=== PATIENT | female | born 1935 | race Caucasian/White ===

== ENCOUNTER 2020-09-17 07:00 | Outpatient (CLI) | payer MEDICARE, OTHER | END 2020-09-17 23:59 | disposition home or self-care (01) | LOC: LAB.R 07:00 | PROVIDERS: ATTEND Registered Nurse | DX: N39.0 Urinary tract infection, site not specified (principal); R41.0 Disorientation, unspecified | CPT/HCPCS: 81002; 87086; 87181 ==